=== PATIENT | male | born 1970 | race Caucasian/White ===

== ENCOUNTER 2017-06-29 18:18 | Inpatient (IN) | payer OTHER, MEDICAID ==
[~2017-06-29] VITALS: Ht 180.3 cm; Wt 95.7 kg
[2017-06-29 19:29] LABS: PLATELET COUNT 212 x10^3mcL (130-400)
[2017-06-29 19:33] LABS: microscopic required? YES; urine erythrocyte TRACE (NEGATIVE)
[2017-06-29 19:35] LABS: CALCIUM 8.8 mg/dL (8.5-10.1); CARBON DIOXIDE 24.7 mmol/L (21-32); CHLORIDE SERUM 99 mmol/L (98-107); CREATININE SERUM 0.7 mg/dL (0.7-1.3); GFR1 > 60 mL/min; GLUCOSE SERUM 110 mg/dL (74-106); POTASSIUM SERUM 3.8 mmol/L (3.5-5.1); SODIUM SERUM 132 mmol/L (136-145)
[2017-06-29 19:36] LABS: RED CELL DISTRIBUTION WIDTH 16.1 % (11.5-14.5)
[2017-06-29 19:40] LABS: ALBUMIN 3.5 g/dL (3.4-5.0); ALKALINE PHOSPHATASE 122 U/L (46-116); ALT/SGPT 20 U/L (16-63); AST/SGOT 11 U/L (15-37); BILIRUBIN TOTAL 0.7 mg/dL (0.20-1.00); TOTAL PROTEIN, SERUM 8.2 g/dL (6.4-8.2)
[2017-06-29 19:52] LABS: BAND NEUTROPHIL 4 % (0-10); BASOPHIL 0 % (0-2); MONOCYTE 7 % (0-7); SEGMENTED NEUTROPHILS 83 % (37-75)
[2017-06-29 19:53] LABS: rbc morphology (normal/abnorm) ABNORMAL (NORMAL)
[2017-06-29] MEDS ORDERED: NITROFURANTOIN50 MG PO (20:55)
[2017-06-29] MEDS ORDERED: LISINOPRIL10 MG PO (20:55)
[2017-06-29] MEDS ORDERED: CIPRO500 MG PO (20:56)
[2017-06-29] MEDS ORDERED: AMITRIPTYLINE H25 MG PO (20:58)
[2017-06-29 21:09] LABS: CHOLESTEROL/HDL RATIO 3.7; MAGNESIUM 1.8 mg/dL (1.8-2.4); PHOSPHOROUS 2.4 mg/dL (2.5-4.9)
[2017-06-29 21:10] LABS: AMPHETAMINE QUAL UR NONE DETECTED (NEG <=1000)
[2017-06-29 21:17] LABS: T3 TOTAL 1.03 ng/mL
[2017-06-29 21:27] LABS: FREE T4 1.25 ng/dL (0.76-1.46); FREE THYROXINE INDEX 3.3 ug/dL (1.4-4.5); T4(THYROXINE) 9.9 ug/dL (4.7-13.3)
[2017-06-29 21:44] VITALS: BP 137/90
[2017-06-29 21:57] VITALS: BP 137/90
[2017-06-30 05:16] VITALS: BP 116/69
[2017-06-30 06:08] LABS: PLATELET COUNT 180 x10^3mcL (130-400)
[2017-06-30 06:39] LABS: CARBON DIOXIDE 25.4 mmol/L (21-32); CHLORIDE SERUM 105 mmol/L (98-107); CREATININE SERUM 0.6 mg/dL (0.7-1.3); GFR1 > 60 mL/min; GLUCOSE SERUM 96 mg/dL (74-106); PHOSPHOROUS 2.8 mg/dL (2.5-4.9); POTASSIUM SERUM 3.6 mmol/L (3.5-5.1); SODIUM SERUM 136 mmol/L (136-145)
[2017-06-30 07:01] LABS: RED CELL DISTRIBUTION WIDTH 16.1 % (11.5-14.5)
[2017-06-30 09:15] VITALS: BP 119/78
[2017-06-30 11:41] LABS: BAND NEUTROPHIL 0 % (0-10); BASOPHIL 0 % (0-2); MONOCYTE 8 % (0-7); SEGMENTED NEUTROPHILS 87 % (37-75)
[2017-06-30 11:42] LABS: PLATELET MORPHOLOGY PLATELETS DECREASED; rbc morphology (normal/abnorm) ABNORMAL (NORMAL)
[2017-06-30 16:45] VITALS: BP 122/53
[2017-06-30 23:06] VITALS: BP 125/74
[2017-07-01 06:21] VITALS: BP 122/72
[2017-07-01 06:22] LABS: BASOPHIL % 0.4 % (0-2); PLATELET COUNT 183 x10^3mcL (130-400)
[2017-07-01 06:42] LABS: CALCIUM 8.6 mg/dL (8.5-10.1); CHLORIDE SERUM 105 mmol/L (98-107); CREATININE SERUM 0.7 mg/dL (0.7-1.3); GFR1 > 60 mL/min; GLUCOSE SERUM 99 mg/dL (74-106); POTASSIUM SERUM 4.3 mmol/L (3.5-5.1); SODIUM SERUM 140 mmol/L (136-145)
[2017-07-01 06:55] LABS: RED CELL DISTRIBUTION WIDTH 16.4 % (11.5-14.5)
[2017-07-01 09:32] VITALS: BP 114/70
[2017-07-01 17:15] VITALS: BP 140/83
[2017-07-01 20:34] VITALS: BP 124/73
[2017-07-02 05:52] VITALS: BP 127/78
[2017-07-02 06:37] LABS: BASOPHIL % 0.7 % (0-2); PLATELET COUNT 183 x10^3mcL (130-400)
[2017-07-02 07:09] LABS: RED CELL DISTRIBUTION WIDTH 15.7 % (11.5-14.5)
[2017-07-02 07:10] LABS: CALCIUM 7.8 mg/dL (8.5-10.1); CARBON DIOXIDE 23.9 mmol/L (21-32); CHLORIDE SERUM 105 mmol/L (98-107); CREATININE SERUM 0.7 mg/dL (0.7-1.3); GFR1 > 60 mL/min; GLUCOSE SERUM 96 mg/dL (74-106); MAGNESIUM 1.7 mg/dL (1.8-2.4); PHOSPHOROUS 3.1 mg/dL (2.5-4.9); POTASSIUM SERUM 3.5 mmol/L (3.5-5.1); SODIUM SERUM 138 mmol/L (136-145)
[2017-07-02 08:56] VITALS: Ht 180.3 cm; Wt 95.7 kg
[2017-07-02 09:25] VITALS: BP 123/88
[2017-07-02] MEDS ORDERED: MERREM IV1 GM INJ (16:16)
[2017-07-02 16:37] VITALS: BP 123/88
[2017-07-02 17:32] VITALS: BP 119/84
== END 2017-07-02 21:36 | disposition home health service (06) | DRG 871 ==
LOC: ED 18:18 → MU 20:30 → DU 20:30 → MU 06-30 09:18
PROVIDERS: Emergency Medicine; Family Medicine
DX: A41.9 Sepsis, unspecified organism (principal); N17.0 Acute kidney failure with tubular necrosis; G82.50 Quadriplegia, unspecified; N39.0 Urinary tract infection, site not specified; E87.1 Hypo-osmolality and hyponatremia; E78.5 Hyperlipidemia, unspecified; E83.39 Other disorders of phosphorus metabolism; E83.51 Hypocalcemia; E83.42 Hypomagnesemia; Z88.2 Allergy status to sulfonamides; Z99.3 Dependence on wheelchair; Z87.820 Personal history of traumatic brain injury
CPT/HCPCS: 83880; 84439; J0696; J2185; J3490; J7030; Q0092

== ENCOUNTER 2017-08-19 19:32 | Inpatient (IN) | payer OTHER, MEDICAID ==
[~2017-08-19] VITALS: Ht 180.3 cm; Wt 106.2 kg
[~2017-08-19 19:32] MED LIST: AMITRIPTYLINE H25 MG PO; CIPRO500 MG PO; LISINOPRIL10 MG PO; MERREM IV1 GM INJ; NITROFURANTOIN50 MG PO
[2017-08-19 21:13] LABS: PLATELET COUNT 192 x10^3mcL (130-400)
[2017-08-19 21:18] LABS: CALCIUM 8.7 mg/dL (8.5-10.1); CARBON DIOXIDE 24.6 mmol/L (21-32); CHLORIDE SERUM 99 mmol/L (98-107); CREATININE SERUM 0.7 mg/dL (0.7-1.3); GFR1 > 60 mL/min; GLUCOSE SERUM 114 mg/dL (74-106); POTASSIUM SERUM 3.8 mmol/L (3.5-5.1); SODIUM SERUM 132 mmol/L (136-145)
[2017-08-19 21:19] LABS: RED CELL DISTRIBUTION WIDTH 16.7 % (11.5-14.5)
[2017-08-19 21:23] LABS: ALBUMIN 3.3 g/dL (3.4-5.0); ALKALINE PHOSPHATASE 139 U/L (46-116); ALT/SGPT 20 U/L (16-63); AST/SGOT 16 U/L (15-37); BILIRUBIN TOTAL 0.55 mg/dL (0.20-1.00); TOTAL PROTEIN, SERUM 8.3 g/dL (6.4-8.2)
[2017-08-19 21:27] LABS: UA SPECIFIC GRAVITY 1.025 (1.005-1.035); microscopic required? YES; urine erythrocyte 1+ (NEGATIVE)
[2017-08-19 21:33] LABS: T3 TOTAL 1.01 ng/mL
[2017-08-19 21:35] LABS: AMPHETAMINE QUAL UR NONE DETECTED (NEG <=1000)
[2017-08-19 21:36] LABS: BAND NEUTROPHIL 4 % (0-10); BASOPHIL 0 % (0-2); MONOCYTE 10 % (0-7); SEGMENTED NEUTROPHILS 82 % (37-75); rbc morphology (normal/abnorm) ABNORMAL (NORMAL)
[2017-08-19 21:37] LABS: CHOLESTEROL/HDL RATIO 3.5; MAGNESIUM 1.6 mg/dL (1.8-2.4); PHOSPHOROUS 2.5 mg/dL (2.5-4.9); PLATELET MORPHOLOGY LARGE PLATELET SEEN
[2017-08-19 21:53] LABS: FREE T4 1.4 ng/dL (0.76-1.46); FREE THYROXINE INDEX 3.3 ug/dL (1.4-4.5); T4(THYROXINE) 10.2 ug/dL (4.7-13.3)
[2017-08-19 22:43] VITALS: BP 111/72
[2017-08-20 05:16] VITALS: BP 108/61
[2017-08-20 06:31] LABS: CALCIUM 8.3 mg/dL (8.5-10.1); CHLORIDE SERUM 105 mmol/L (98-107); CREATININE SERUM 0.7 mg/dL (0.7-1.3); GFR1 > 60 mL/min; GLUCOSE SERUM 103 mg/dL (74-106); MAGNESIUM 1.9 mg/dL (1.8-2.4); PHOSPHOROUS 2.7 mg/dL (2.5-4.9); POTASSIUM SERUM 3.8 mmol/L (3.5-5.1); SODIUM SERUM 137 mmol/L (136-145)
[2017-08-20 06:41] LABS: PLATELET COUNT 188 x10^3mcL (130-400)
[2017-08-20 06:57] LABS: RED CELL DISTRIBUTION WIDTH 16.8 % (11.5-14.5)
[2017-08-20 08:02] VITALS: Ht 180.3 cm; Wt 106.2 kg
[2017-08-20 08:36] LABS: BAND NEUTROPHIL 5 % (0-10); BASOPHIL 0 % (0-2); MONOCYTE 9 % (0-7); SEGMENTED NEUTROPHILS 79 % (37-75)
[2017-08-20 08:37] LABS: rbc morphology (normal/abnorm) ABNORMAL (NORMAL)
[2017-08-20 09:02] VITALS: BP 116/79
[2017-08-20 12:48] VITALS: BP 106/63
[2017-08-20] MEDS ORDERED: LAC PO (17:25)
[2017-08-20] MEDS ORDERED: PYRIDIUM200 M1 PO (17:26)
[2017-08-20] MEDS ORDERED: INVANZ1 GM IV (17:26)
[2017-08-20 18:39] VITALS: BP 106/63
[2017-08-20 18:54] VITALS: BP 122/74
[2017-08-20 21:16] VITALS: BP 127/78
== END 2017-08-20 22:27 | disposition home health service (06) | DRG 871 ==
LOC: ED 19:32 → DU 20:35
PROVIDERS: Emergency Medicine; Family Medicine
PROC: 02HV33Z Insertion of Infusion Device into Superior Vena Cava, Percutaneous Approach (ICD-10-PCS; principal; 2017-08-20)
PROC: B548ZZA Ultrasonography of Superior Vena Cava, Guidance (ICD-10-PCS; 2017-08-20)
PROC: 05HY33Z Insertion of Infusion Device into Upper Vein, Percutaneous Approach (ICD-10-PCS; 2017-08-20)
DX: A41.9 Sepsis, unspecified organism (principal); R53.2 Functional quadriplegia; N17.0 Acute kidney failure with tubular necrosis; N39.0 Urinary tract infection, site not specified; E87.1 Hypo-osmolality and hyponatremia; E86.0 Dehydration; Z88.2 Allergy status to sulfonamides; Z88.8 Allergy status to other drugs, medicaments and biological substances; E83.42 Hypomagnesemia
CPT/HCPCS: 83880; 84439; 87491; 87591; J0696; J1170; J1335; J1642; J2001; J2060; J2185 ×2; J7030; Q0092

== ENCOUNTER 2017-08-23 15:16 | Emergency (ER) | payer OTHER, MEDICAID ==
[~2017-08-23] VITALS: Ht 180.3 cm; Wt 104.3 kg
[~2017-08-23 15:16] MED LIST changes: +INVANZ1 GM IV; +LAC PO; +PYRIDIUM200 M1 PO
[2017-08-23 15:37] VITALS: BP 143/87; Ht 180.3 cm; Wt 104.3 kg
== END 2017-08-23 18:40 | disposition home or self-care (01) ==
LOC: ED 15:16
DX: Z45.09 Encounter for adjustment and management of other cardiac device (principal); I10 Essential (primary) hypertension; Z88.2 Allergy status to sulfonamides